=== PATIENT | female | born 1965 | race Caucasian/White ===

== ENCOUNTER 2024-11-08 10:27 | Emergency (ER) | payer OTHER, SELFPAY ==
--- NOTE | 2024-11-08 10:37 | ED_ITS ---
HPI - General Adult General Chief complaint: Headache Stated complaint: Headache Time Seen by Provider: 11/08/24 10:37 Source: patient Mode of arrival: ambulatory Limitations: no limitations History of Present Illness HPI narrative: 59 yo F with hx of migraines presents with c/o headache for 4 days. Out of toradol which she normally takes for her migraines. States normal migraine symptoms, pain, nausea and fatigue. No vomiting or vision changes. Alert and talkative. Moved here 5 months ago and does not have PCP. Also out of levothyroxine and losartan. BP elevated today. No CP or SOB. All systems reviewed and negative except as noted above. Related Data Home Medications ?Medication ?Instructions ?Recorded ?Confirmed ?Last Taken ?Type Benadryl 11/08/24 11/07/24 History Haldol 11/08/24 Unknown History Prozac 11/08/24 Unknown History levothyroxine 11/08/24 Unknown History propanolol 11/08/24 Unknown History toradol 11/08/24 11/07/24 History Allergies Allergy/AdvReac Type Severity Reaction Status Date / Time divalproex sodium (From Allergy Intermediate Rash Verified 11/08/24 10:38 Depakote) Sulfa (Sulfonamide Allergy Intermediate Rash Verified 11/08/24 10:38 Antibiotics) Review of Systems Review of Systems: CONSTITUTIONAL: Denies fever, chills, or sweats. EYES: Denies visual changes, redness, or discharge. ENT: Denies rhinorrhea, congestion, sore throat, or otalgia. CARDIOVASCULAR: Denies chest pain, palpitations, or edema. RESPIRATORY: Denies cough or dyspnea. GASTROINTESTINAL: Denies abdominal pain, nausea, vomiting, or diarrhea. GENITOURINARY: Denies dysuria or hematuria. SKIN: Denies rash or itching. MUSCULOSKELETAL: Denies back pain, joint pain, or myalgia. NEUROLOGIC: Reports headache, nausea, fatigue. Denies numbness, or weakness. PSYCHIATRIC: Denies anxiety or depression. All other systems reviewed are negative, except as documented in HPI. PMFSH Comments At time of signature, agree with nursing past medical, surgical, social and family history. There is no relevant family history pertinent to the presenting complaint. Exam Narrative: GENERAL: This is a well-nourished, well-developed patient, in no apparent distress. HEAD: normocephalic, atraumatic. EYES: PERRL. Sclera clear/white. Vision is grossly intact. extraocular motions intact EARS: External ears normal, auditory canals clear and without drainage, TMs normal without perforation. Hearing grossly intact. NOSE: External nose normal with no obvious nasal discharge, nares without redness, no rhinorrhea. THROAT: Mucous membranes moist, posterior pharynx clear. NECK: Neck supple, non-tender without lymphadenopathy, masses or thyromegaly. CARDIOVASCULAR: Regular rate and rhythm without murmurs, gallops, or rubs. RESPIRATORY: Clear to auscultation. Breath sounds equal bilaterally. No wheezes, rales, or rhonchi. SKIN: warm, Dry, intact with no suspicious lesions or rash, good texture and turgor. NEURO: awake, alert, and oriented to person, place and time. There were no obvious focal neurologic abnormalities. EXTREMITIES: No joint tenderness, effusion, or edema noted. Course Course Level of Care: Express Care Visit Vital Signs Vital signs: Vital Signs Pulse Rate 74 11/08/24 10:47 Respiratory Rate 11/08/24 10:47 Blood Pressure 184/74 H 11/08/24 10:47 Pulse Oximetry 11/08/24 10:47 Pulse Rate 74 11/08/24 10:47 Respiratory Rate 11/08/24 10:47 Blood Pressure 162/69 H 11/08/24 11:17 Pulse Oximetry 11/08/24 10:47 review Medical Decision Making MDM Narrative Medical decision making narrative: migraine pain decreased from 7/10 to 4/10. Blood pressure at discharge 162/80. Refilled losartan. No chest pain or shortness of breath. Refer to primary care physician for follow-up. No neuro deficits. Vital Signs Vital Signs: Vital Signs Pulse Rate 74 11/08/24 10:47 Respiratory Rate 11/08/24 10:47 Blood Pressure 184/74 H 11/08/24 10:47 Pulse Oximetry 11/08/24 10:47 Pulse Rate 74 11/08/24 10:47 Respiratory Rate 11/08/24 10:47 Blood Pressure 162/69 H 11/08/24 11:17 Pulse Oximetry 11/08/24 10:47 Discharge Plan Discharge Clinical Impression: Migraine, Encounter for medication refill Patient Disposition: Home Condition: Stable Instructions: Migraine Headache (ED) Additional Instructions: Your blood pressure was 162/80. I refilled your losartan today. Go home and rest in a dark, quiet room. Drink at least 64 ounces of water a day. Schedule follow up appointment. Patient Language: Indonesian Prescriptions: New losartan 25 mg tablet 25 mg PO DAILY 30 Days Qty: 30 0RF No Action toradol Benadryl propanolol levothyroxine Haldol Prozac Follow-up/Referrals: Roque Montenegro MD [Physician] - ( establish care with a primary care physician) PHYSICIAN,COLLEGE OR UNIVERSITY REGISTRAR [Primary Care Provider] - Time of Disposition: 11:18
--- OUTSIDE RECORDS SUMMARY | 2024-11-08 10:42 | XMS_ITS ---
Author Organization Formerly [facility] Address [address] [place] [address] Care Team Providers Care Records Management Director Name Role Phone Levi García Primary Care Provider Shanita Brar Unavailable [phone] Allergies Allergen (clinical drug ingredient) Drug/Non Drug Allergy documented on EMR Reaction Allergy Type Onset Date Status valproate Depakote Unknown Drug Allergy Active Substance with sulfonamide structure and antibacterial mechanism of action (substance) Sulfa Antibiotics Unknown Drug Allergy Active REASON FOR VISIT 4 week F/U Medications Medication SIG (Take, Route, Frequency, Duration) Notes Start Date End Date Status Albuterol Sulfate HFA 108 (90 Base) MCG/ACT 1 puff as needed Inhalation every 4 hrs Active Levothyroxine Sodium 175 MCG 1 tablet in the morning on an empty stomach Orally Once a day Active Propranolol HCl ER 80 MG 1 capsule Orall y Once a day; Duration: 30 days Active Mirtazapine 7.5 MG 1-2 tablets at bedti ri as needed for sleep Orally; Duration: 30 days Active ALPRAZolam 0.5 MG 1 tablet once daily as needed for SEVERE Orally Active Simvastatin 40 MG 1 tablet in the even ing Orally Once a day Active Haloperidol 1 MG 1 tablet at bedtime Orally Once a day; Duration: 30 days take with 5 mg tablet Active Haloperidol 5 MG 1 tablet at bedtime Orally Once a day; Duration: 30 days take with 1 mg tablet Active FLUoxetine HCl 60 MG 1 tablet Orally Onc e a day; Duration: 30 days Active Social History Sex Assigned At : Social History Observation Description Sex Assigned At Female Encounters Encounter Location Date Provider Diagnosis [facility] [address], [place] [address] 11/07/2024 Shanita Brar MADELYN (generalized anxiety disorder) F41.1 ; Bipolar disorder F31.9 ; MDD (major depressive disorder) F32.9 ; PTSD (post-traumatic stress disorder) F43.10 ; Panic disorder F41.0 and Insomnia G47.00 Assessments Encounter Date Diagnosis (ICD Code) Assessment Notes Treatment Notes Treatment Clinical Notes Section Notes 11/07/2024 MADELYN (generalized anxiety disorder) (ICD-10 - F41.1) 11/07/2024 Bipolar disorder (ICD-10 - F31.9) 11/07/2024 MDD (major depressive disorder) (ICD-10 - F32.9) 11/07/2024 PTSD (post-traumatic stress disorder) (ICD-10 - F43.10) 11/07/2024 Panic disorder (ICD-10 - F41.0) 11/07/2024 Insomnia (ICD-10 - G47.00) Encouraged patient to f/u with Dr. García about sleep study to diagnose possible sleep apnea Plan Of Treatment Medication Medication Name Sig Start Date Stop Date Notes Propranolol HCl ER 80 MG 1 capsule Orall y Once a day; Duration: 30 days Mirtazapine 7.5 MG 1-2 tablets at bedti me as needed for sleep Orally; Duration: 30 days ALPRAZolam 0.5 MG 1 tablet once daily as needed for SEVERE Orally Haloperidol 1 MG 1 tablet at bedtime Orally Once a day; Duration: 30 days Haloperidol 5 MG 1 tablet at bedtime Orally Once a day; Duration: 30 days FLUoxetine HCl 60 MG 1 tablet Orally Onc e a day; Duration: 30 days Treatment Notes Assessment Notes Insomnia Encouraged patient t o f/u with Dr. García about sleep study to diagnose possible sleep apnea Next Appt Details Provider Name:Shanitarosa m huitronsammie, 11/14/2024 01:40:00 PM, [address] [place], [address], Progress Notes * Danny FELTONDOB: [birth year] (59 yo F)Acc No.[id number]:11/07/2024 UNLOCKED PROGRESS NOTE Patient: Montez Danny ZAVALETA Provider: Laci Brar, MSN, ECONOMIC DEVELOPMENT COORDINATOR, PMHNP-BC :1965 A ge:59 Y S ex:Female Date:11/07/2024 Address:[address] [place], [place] [id number] Pcp:Levi García Subjective: * Chief Complaints: * 1 . 4 week F/U. * HPI: D epression Screening: PHQ-9 L ittle interest or pleasure in doing things S everal days, F eeling down, depressed, or hopeless S everal days, T rouble falling or staying asleep, or sleeping too much N early every day, F eeling tired or having little energy Several days, P oor appetite or overeating S everal days, F eeling bad about yourself or that you are a failure, or have let yourself or your family down N ot at all, T rouble concentrating on things, such as reading the newspaper or watching television N ot at all, M oving or speaking so slowly that other people could have noticed; or the opposite, being so fidgety or restless that you have been moving around a lot more than usual N ot at all, T houghts that you would be better off or of hurting yourself in some way N ot at all, T otal Score 7 , I nterpretation M ild Depression. I ntervention D epression Screening Findings N egative, F ollow-Up for Depression P rescribed psychotropic medications, S uicide Risk Assessment Performed 0 10/10/2024. C SSRS Interpretation and Follow Up Plan: CSSRS Interpretation and Follow Up Plan C SSRS Screen documented using SF Y es, R isk Disposition from M oderate - Follow Up Plan required, F ollow Up Plan M oderate/High: Patient risk further assessed by Behavioral Health ECONOMIC DEVELOPMENT COORDINATOR or Clinician, no warm hand off needed at this time, T imeframe of Screening T cynthia. S creening: Thor Suicide Severity Rating Scale (LF) D o you want to initiate with S creener form, I nterpretation: M oderate Risk, 6 . Suicide Behavior Question: Have you ever done anything,started to do anything, or prepared to end your life? Y es, W ere any of these in the past 3 months? N o, 2 . Suicidal Thoughts: Have you actually had any thoughts of killing yourself? N o, 1 . Wish to be : Have you wished you were or wished you could go to sleep and not wake up? N o. S ummary: . * ROS: P sych ROS: Constitutional A ll systems negative unless indicated otherwise.. E ndocrine H istory of Hypothyroidism - treated. P sych P ast suicide attempt/attempts -1,Reports anger/irritability,Reports depression/anxiety,Reports sleep disturbances. * Medical History: P TSD, Bipolar, Hypothyroidism. * Surgical History: L eft Elbow Bone Reduction 2019, Carpal Tunnel Both Hands , HYSTERECTOMY/REVISE VAGINA 09/2005. * Hospitalization/Major Diagno stic Procedure: D enies Past Hospitalization. * Family History: F ather: . M other: . 3 brother(s) , 3 sister(s) . 1 son(s) , 2 daughter(s) . . sister: autism. * Social History: P [facility] Social History: L iving Arrangement L iving Arrangement: D ependent Living, L iving with: S ister, I s this a supportive environment? Y es. A lcohol Use A lcohol Use Frequency: Never. I llicit Substance Usage I llicit Substance Usage: N o. S lisbeth Question Alcohol Screening H ow may times in the past year have you had (4 for women, or 5 for men) or more drinks in a day? 0 . * Medications: T aking Simvastatin 40 MG Tablet 1 tablet in the evening Orally Once a day , Taking Albuterol Sulfate HFA 108 (90 Base) MCG/ACT Aerosol Solution 1 puff as needed Inhalation every 4 hrs , Taking Levothyroxine Sodium 175 MCG Capsule 1 tablet in the morning on an empty stomach Orally Once a day , Taking Haloperidol 5 MG Tablet 1 tablet at bedtime Orally Once a day take with 1 mg tablet, Taking Haloperidol 1 MG Tablet 1 tablet at bedtime Orally Once a day take with 5 mg tablet, Taking FLUoxetine HCl 60 MG Tablet 1 tablet Orally Once a day , Taking Propranolol HCl ER 80 MG Capsule Extended Release 24 Hour 1 capsule Orally Once a day , Taking ALPRAZolam 0.5 MG Tablet 1 tablet once daily as needed for SEVERE Orally , Taking Mirtazapine 7.5 MG Tablet 1-2 tablets at bedtime as needed for sleep Orally * Allergies: S ulfa Antibiotics, Depakote: Side Effects. Objective: * Vitals: * Examination: M ental Status Exam: SENSORIUM AND COGNITION A &Ox4. ATTENTION AND CONCENTRATION N o deficits. APPEARANCE P ifeoma interview - unable to determine appearance.. ATTITUDE AND BEHAVIOR C ooperative, Pleasant. EYE CONTACT P ifeoma interview. AFFECT C ongruent with reported mood. MOOD E uthymic. SPEECH QUANTITY A ppropriate. SPEECH QUALITY F luent, Appropriate volume. THOUGHT PROCESS C oherent and goal directed. THOUGHT CONTENT A ppropriate - WNL. LANGUAGE A ppropriate- WNL. MOTOR ACTIVITY P ifeoma interview. SUICIDAL IDEATION H istory of suicide attempt, Denies suicidal ideation. HOMICIDAL IDEATION D enies homicidal ideation. HALLUCINATIONS D enies hallucinations. INSIGHT G ood. JUDGMENT G ood. FUND OF KNOWLEDGE G ood. ABILITY TO PARTICIPATE IN TREATMENT H igh. WILLINGNESS TO PARTICIPATE IN TREATMENT H igh. SIGNIFICANT FINDINGS REGARDING MENTAL STATUS N one. DEPRESSIVE SYMPTOMS M oderate. ELEVATED MOOD SYMPTOMS R eported in the past, but not evident at current visit. ANXIETY M oderate. Assessment: * Assessment: 1. G AD (generalized anxiety disorder) - F41.1 2 . B ipolar disorder - F31.9 (Primary) 3 . M DD (major depressive disorder) - F32.9 4 .?PTSD (post-traumatic stress disorder) - F43.10 5 . P anic disorder - F41.0? 6. I nsomnia - G47.00 Plan: * Treatment: 2. G AD (generalized anxiety disorder) Refill Propranolol HCl ER Capsule Extended Release 24 Hour, 80 MG, 1 capsule, Orally, Once a day, 30 days, 30, Refills 0. 3. M DD (major depressive disorder) Increase FLUoxetine HCl Tablet, 60 MG, 1 tablet, Orally, Once a day, 30 days, 30 Tablet, Refills 0.? 4. P anic disorder Refill ALPRAZolam Tablet, 0.5 MG, 1 tablet once daily as needed for SEVERE, Orally, 12, Refills 0.? 5. I nsomnia Refill Mirtazapine Tablet, 7.5 MG, 1-2 tablets at bedtime as needed for sleep, Orally, 30 days, 60, Refills 0. Notes: Encouraged patient to f/u with Dr. García about sleep study to diagnose possible sleep apnea? * * Electronic signature of Brooks thalia Brar on 11/08/2024 at 10:42 AM CDT Sign off status: Pending * Provider: Laci Brar, MSN, ECONOMIC DEVELOPMENT COORDINATOR, PMHNP- Date: 0 11/07/2024 Generated for Printing/Faxing/eTransmitting on: 0 11/08/2024 10:42 AM CDT History and Physical Notes * HPI (History of Present Illness) Category Sub-Category Detail Notes Category Not es Depression Screening PHQ-9 Little inte rest or pleasure in doing things: Several days Feeling down, depressed, or hopeless: Se veral days Trouble falling or staying asleep, or sl eeping too much: Nearly every day Feeling tired or having little energy: S everal days Poor appetite or overeating: Several day s Feeling bad about yourself o r that you are a failure, or have let yourself or your family down: Not at all Trouble concentrating on thi ngs, such as reading the newspaper or watching television: Not at all Moving or speaking so slowly that other people could have noticed; or the opposite, being so fidgety or restless that you have been moving around a lot more than usual: Not at all Thoughts that you would be b leticia off or of hurting yourself in some way: Not at all Total Score: 7 Interpretation: Mild Depression Intervention Depression Screening Findings: N egative Follow-Up for Depression: Prescribed psy chotropic medications Suicide Risk Assessment Performed: 10/10 Summary . Screening Thor Suicide Sev erity Rating Scale (LF) Do you want to initiate with: Screener form Interpretation:: Moderate Risk 6. Suicide Behavior Question: Have you ever done anything,started to do anything, or prepared to end your life?: Yes Were any of these in the past 3 months?: No 2. Suicidal Thoughts: Have you actually had any thoughts of killing yourself?: No 1. Wish to be : Have you wished you were or wished you could go to sleep and not wake up?: No CSSRS Interpretation and Follow Up Plan CSSRS Interpretation and Follow Up Plan CSSRS Screen documented using SF: Yes Risk Disposition from SF: Moderate - Fol low Up Plan required Follow Up Plan: Moderate/Hig h: Patient risk further assessed by Behavioral Health ECONOMIC DEVELOPMENT COORDINATOR or Clinician, no warm hand off needed at this time Timeframe of Screening: Today Examination Category Sub-Category Detail Notes Category Not es Mental Status Exam SENSORIUM AND COGNITION A&Ox4 ATTENTION AND CONCENTRATION No deficits APPEARANCE Phone interview - un able to determine appearance. ATTITUDE AND BEHAVIOR Cooperative, Pleas ant EYE CONTACT Phone interview AFFECT Congruent with repor patti mood MOOD Euthymic SPEECH QUANTITY Appropriate SPEECH QUALITY Fluent, Appropriate volume THOUGHT PROCESS Coherent and goal di rected THOUGHT CONTENT Appropriate - WNL MOTOR ACTIVITY Phone interview SUICIDAL IDEATION History of suicide a ttempt, Denies suicidal ideation HOMICIDAL IDEATION Denies homicidal daniel ation HALLUCINATIONS Denies hallucination s INSIGHT Good JUDGMENT Good FUND OF KNOWLEDGE Good ABILITY TO PARTICIPATE IN TREATMENT High WILLINGNESS TO PARTICIPATE IN TREATMENT High SIGNIFICANT FINDINGS REGARDI NG MENTAL STATUS None LANGUAGE Appropriate- WNL DEPRESSIVE SYMPTOMS Moderate ELEVATED MOOD SYMPTOMS Reported in the p ast, but not evident at current visit ANXIETY Moderate
--- OUTSIDE RECORDS SUMMARY | 2024-11-08 10:42 | XMS_ITS | Patient Health Record ---
Author Organization [facility] Address [address] [place] [address] Care Team Providers Care Quantitative Associate Name Role Phone Levi García Primary Care Provider ValdezJohn bryan Unavailable [phone] Shanita Brar Unavailable [phone] Allergies Allergen (clinical drug ingredient) Drug/Non Drug Allergy documented on EMR Reaction Allergy Type Onset Date Status valproate Depakote Unknown Drug Allergy Active Substance with sulfonamide structure and antibacterial mechanism of action (substance) Sulfa Antibiotics Unknown Drug Allergy Active Reason For Referral No Information Medications Medication SIG (Take, Route, Frequency, Duration) Notes Start Date End Date Status Albuterol Sulfate HFA 108 (90 Base) MCG/ACT 1 puff as needed Inhalation every 4 hrs Active Simvastatin 40 MG 1 tablet in the even ing Orally Once a day Active Levothyroxine Sodium 175 MCG 1 tablet in the morning on an empty stomach Orally Once a day Active Haloperidol 1 MG 1 tablet at bedtime Orally Once a day; Duration: 30 days take with 5 mg tablet Active Haloperidol 5 MG 1 tablet at bedtime Orally Once a day; Duration: 30 days take with 1 mg tablet Active Propranolol HCl ER 80 MG 1 capsule Orall y Once a day; Duration: 30 days Active FLUoxetine HCl 60 MG 1 tablet Orally Onc e a day; Duration: 30 days Active Mirtazapine 7.5 MG 1-2 tablets at bedti me as needed for sleep Orally; Duration: 30 days Active ALPRAZolam 0.5 MG 1 tablet once daily as needed for SEVERE Orally Active Social History Tobacco Use: Social History Observation Description Date Details (start date - stop date) Current Smoker NA - NA Sex Assigned At : Social History Observation Description Sex Assigned At Female PRAPARE Question Answer Notes Date Completed/Updated: 09/13/2024 What is your current housing situation? I have h ousing Are you worried about losing your housing? No What is the highest level of school that you have finished? Less than a high school degree What is your current work situation? Oth erwise unemployed but not seeking work (ex. student, retired, disabled, unpaid primary rn coronary care unit) In the past year, have you o r any family members you live with been unable to get any of the following when it was really needed? Check all that apply I do not have problems meeting my needs Has lack of transportation k ept you from medical appointments, meetings, work or from getting things needed for daily living? No How often do you see or talk to people that you care about and feel close to? (For example: talking to friends on the phone, visiting friends or family, going to mormon or club meetings) More than 5 times a week How stressed are you? Stress is when someone feels tense, nervous, anxious, or can\t sleep at night because their mind is troubled Somewhat In the past year have you sp ent more than 2 nights in a row in a skilled nursing, snf, long-term center, or juvenile correctional facility? No Do you feel physically and e motionally safe where you currently live? Yes In the past year, have you b een afraid of your partner or ex-partner? Yes PRAPARE Score: 6 Tobacco Control (Standard) Question Answer Notes Tobacco use: Current every day smoker Additional Findings: Tobacco user Heavy cigarett e smoker (20-39 cigs/day) Problems Problem Type SNOMED Code ICD Code Onset Dates Problem Status W/U Status Risk Notes Problem Insomnia (490315512) Insomnia (G47.00) Active confirmed Problem Posttraumatic stress disorder (99944745) PTSD (post-traumatic stress disorder) (F43.10) Active confirmed Problem Generalized anxiety disorder (58943910) MADELYN (generalized anxiety disorder) (F41.1) Active confirmed Problem Panic disorder (213548938) Panic disorder (F41.0) Active confirmed Problem Bipolar disorder (26386730) Bipolar disorder (F31.9) Active confirmed Problem Major depressive disorder (602076795) MDD (major depressive disorder) (F32.9) Active confirmed Problem Nicotine dependence (76885955) Nicotine dependence (F17.200) Active confirmed Problem Bulimia nervosa, unspecified (F50.20) Active confirmed Vital Signs Heart Rate 88 /min 09/15/2024 Temperature 98.2 degrees Fahrenheit 07/21/2024 Respiratory Rate 16 /min 07/21/2024 Oximetry 98 % 09/15/2024 Blood pressure diastolic 90 mm Hg 09/15/2024 Height 64 in 09/15/2024 Blood pressure systolic 134 mm Hg 09/15/2024 Weight 223.2 lbs 09/15/2024 BMI 38.31 kg/m2 09/15/2024 Encounters Encounter Location Date Provider Diagnosis [address] [address] 07/21/2024 John Valdez Bipolar disorder F31.9 ; MADELYN (generalized anxiety disorder) F41.1 ; MDD (major depressive disorder) F32.9 ; PTSD (post-traumatic stress disorder) F43.10 and Bulimia nervosa, unspecified F50.[address] [address] 08/18/2024 John Valdez Bipolar disorder F31.9 ; MADELYN (generalized anxiety disorder) F41.1 ; MDD (major depressive disorder) F32.9 ; PTSD (post-traumatic stress disorder) F43.10 ; Bulimia nervosa, unspecified F50.20 and Nicotine dependence F17.[address] [address] 09/15/2024 John Valdez Bipolar disorder F31.9 ; MADELYN (generalized anxiety disorder) F41.1 ; MDD (major depressive disorder) F32.9 ; PTSD (post-traumatic stress disorder) F43.10 ; Bulimia nervosa, unspecified F50.20 and Nicotine dependence F17.[address] [address] 10/10/2024 Shanita Zonia Bipolar disorder F31.9 ; MADELYN (generalized anxiety disorder) F41.1 ; MDD (major depressive disorder) F32.9 ; PTSD (post-traumatic stress disorder) F43.10 ; Panic disorder F41.0 ; Insomnia G47.00 and Therapeutic drug monitoring Z51.81 [facility] [place] [address] 09/14/2024 Levi García Assessments Encounter Date Diagnosis (ICD Code) Assessment Notes Treatment Notes Treatment Clinical Notes Section Notes 07/21/2024 Bipolar disorder (ICD-10 - F31.9) Duration (acute/chronic), stability (controlled/uncontro lled): Chronic, somewhat controlled with current medications, still some room for improvement, see HPI Current medications/efficacy : Somewhat, room for improvement Previous medication trials: fluoxetine, venlafaxine, haloperidol, paroxetine (GI upset), escitalopram (ineffective), citalopram, bupropion, quetiapine (weight gain), melatonin (ineffective) Current/previous therapies: Previously followed up with therapy, last appointment last month, previously following up once monthly - planning to establish care with another therapist Examination as documented - see pertinent aspects of office visit documentation. Pertinent diagnostics: WAITING ON MEDICAID [place] TO KICK IN Differential diagnoses: RECOMMENDATIONS: START propranolol as prescribed to assist with anxiety/panic/PTSD - educated patient/guardian on adverse effects, risks and benefits, as well as alternative treatments START fluoxetine as prescribed to assist with anxiety/depression/b ulemia - educated patient/guardian on adverse effects, risks and benefits, as well as alternative treatments Continue/modify other medications as prescribed - educated patient/guardian on adverse effects, risks and benefits, as well as alternative treatments Consume well balanced diet, preferably low in saturated fats (solid at room temperature, such as butter, margarine, Crisco, etc) and low in sodium (<2,000mg per day). Consume plenty of fruits/vegetables, healthy grains/whole grains, unsaturated/healthy fats (liquid at room temperature, such as olive oil, sunflower seed oil, canola, vegetable, etc.). Exercise regularly - Develop an exercise routine. 30 minutes of moderate exercise (walking at a brisk pace) 5 times per week is recommended. You should work hard enough to cause a sweat but still be able to talk with others while exercising. Exercise improves overall health - improves blood pressure and blood sugar, helps control weight, reduces stress, and improves mood. Practice stress reduction techniques, such as guided imagery, journaling, aromatherapy, acupuncture/acupress ure, deep breathing, etc. Practice healthy sleep hygiene - maintain regular routine, no caffeine after 1PM, no exercise 1-2 hours prior to bedtime, keep bedroom dark and cool, no TV or electronics while in bed. Consider melatonin as needed. Consider cognitive behavioral therapy for insomnia (CBT-I). Consider/Continue therapy. Consider/Continue substance cessation therapy as needed - contact office if desiring medication assisted therapy. Manage co-morbid conditions. Continue monitoring symptoms - report persistent or worsening/concerning symptoms to the office or go to the ER. For mental health CRISIS, please reach out to [phone] ([place] [place] [employer] Suicide and Crisis Lifeline), 911, go to the emergency department, or contact the [facility] Crisis Unit/Team. Follow up as scheduled in 4 weeks or sooner if necessary. Follow up with PCP and/or other specialists as advised. NEXT STEP: Consider LAB collection after [place] Medicaid [place]. Consider increasing fluoxetine. Consider increasing propranolol. Consider medication to assist with sleep. 08/18/2024 Bipolar disorder (ICD-10 - F31.9) Duration (acute/chronic), stability (controlled/uncontro lled): Chronic, subjective slight improvement with recent medication adjustments, still some room for improvement, see HPI Current medications/efficacy : Somewhat, room for improvement Previous medication trials: fluoxetine, venlafaxine, haloperidol, paroxetine (GI upset), escitalopram (ineffective), citalopram, bupropion, quetiapine (weight gain), melatonin (ineffective), quetiapine (weight gain) Current/previous therapies: Previously followed up with therapy, last appointment last month, previously following up once monthly - planning to establish care with another therapist Examination as documented - see pertinent aspects of office visit documentation. Pertinent diagnostics: WAITING ON MEDICAID [place] TO KICK IN Differential diagnoses: RECOMMENDATIONS: INCREASE propranolol and switch to ER formulation as prescribed to assist with anxiety/panic/PTSD - educated patient/guardian on adverse effects, risks and benefits, as well as alternative treatments INCREASE fluoxetine as prescribed to assist with anxiety/depression/b ulemia - educated patient/guardian on adverse effects, risks and benefits, as well as alternative treatments START trazodone as prescribed to assist with sleep - educated patient/guardian on adverse effects, risks and benefits, as well as alternative treatments DECREASE venlafaxine as prescribed/discussed , patient wanting to optimize fluoxetine and potentially discontinue venlafaxine - educated patient/guardian on adverse effects, risks and benefits, as well as alternative treatments START low dose alprazolam as prescribed, ONLY NEEDED, patient to focus on nonpharmacologic stress reduction techniques as discussed FIRST - educated patient/guardian on adverse effects, risks and benefits, as well as alternative treatments Continue/modify other medications as prescribed - educated patient/guardian on adverse effects, risks and benefits, as well as alternative treatments Consume well balanced diet, preferably low in saturated fats (solid at room temperature, such as butter, margarine, Crisco, etc) and low in sodium (<2,000mg per day). Consume plenty of fruits/vegetables, healthy grains/whole grains, unsaturated/healthy fats (liquid at room temperature, such as olive oil, sunflower seed oil, canola, vegetable, etc.). Exercise regularly - Develop an exercise routine. 30 minutes of moderate exercise (walking at a brisk pace) 5 times per week is recommended. You should work hard enough to cause a sweat but still be able to talk with others while exercising. Exercise improves overall health - improves blood pressure and blood sugar, helps control weight, reduces stress, and improves mood. Practice stress reduction techniques, such as guided imagery, journaling, aromatherapy, acupuncture/acupress ure, deep breathing, etc. Practice healthy sleep hygiene - maintain regular routine, no caffeine after 1PM, no exercise 1-2 hours prior to bedtime, keep bedroom dark and cool, no TV or electronics while in bed. Consider melatonin as needed. Consider cognitive behavioral therapy for insomnia (CBT-I). Consider/Continue therapy. Consider/Continue substance cessation therapy as needed - contact office if desiring medication assisted therapy. Manage co-morbid conditions. Continue monitoring symptoms - report persistent or worsening/concerning symptoms to the office or go to the ER. For mental health CRISIS, please reach out to [phone] (National Suicide and Crisis Lifeline), 911, go to the emergency department, or contact the [facility] Crisis Unit/Team. Follow up as scheduled in 4 weeks or sooner if necessary. Follow up with PCP and/or other specialists as advised. NEXT STEP: Consider LAB collection after [place]. Consider increasing fluoxetine. Consider increasing propranolol. Consider other medication adjustments as needed. 09/15/2024 Bipolar disorder (ICD-10 - F31.9) Duration (acute/chronic), stability (controlled/uncontro lled): Chronic, subjective slight improvement with recent medication adjustments, still some room for improvement, see HPI Current medications/efficacy : Somewhat, room for improvement Previous medication trials: fluoxetine, venlafaxine, haloperidol, paroxetine (GI upset), escitalopram (ineffective), citalopram, bupropion, quetiapine (weight gain), melatonin (ineffective), hydroxyzine (ineffective), trazodone (oversedating) Current/previous therapies: Previously followed up with therapy, last appointment last month, previously following up once monthly - planning to establish care with another therapist Examination as documented - see pertinent aspects of office visit documentation. Pertinent diagnostics: WAITING ON MEDICAID [place] TO KICK IN Differential diagnoses: RECOMMENDATIONS: INCREASE propranolol and switch to ER formulation as prescribed to assist with anxiety/panic/PTSD - educated patient/guardian on adverse effects, risks and benefits, as well as alternative treatments INCREASE fluoxetine as prescribed to assist with anxiety/depression/b ulemia - educated patient/guardian on adverse effects, risks and benefits, as well as alternative treatments STOP trazodone and SWITCH to mirtazapine as prescribed to assist with sleep - educated patient/guardian on adverse effects, risks and benefits, as well as alternative treatments DECREASE venlafaxine as prescribed/discussed , patient wanting to optimize fluoxetine and potentially discontinue venlafaxine - educated patient/guardian on adverse effects, risks and benefits, as well as alternative treatments CONTINUE low dose alprazolam as prescribed, ONLY NEEDED, patient to focus on nonpharmacologic stress reduction techniques as discussed FIRST - educated patient/guardian on adverse effects, risks and benefits, as well as alternative treatments Continue/modify other medications as prescribed - educated patient/guardian on adverse effects, risks and benefits, as well as alternative treatments Consume well balanced diet, preferably low in saturated fats (solid at room temperature, such as butter, margarine, Crisco, etc) and low in sodium (<2,000mg per day). Consume plenty of fruits/vegetables, healthy grains/whole grains, unsaturated/healthy fats (liquid at room temperature, such as olive oil, sunflower seed oil, canola, vegetable, etc.). Exercise regularly - Develop an exercise routine. 30 minutes of moderate exercise (walking at a brisk pace) 5 times per week is recommended. You should work hard enough to cause a sweat but still be able to talk with others while exercising. Exercise improves overall health - improves blood pressure and blood sugar, helps control weight, reduces stress, and improves mood. Practice stress reduction techniques, such as guided imagery, journaling, aromatherapy, acupuncture/acupress ure, deep breathing, etc. Practice healthy sleep hygiene - maintain regular routine, no caffeine after 1PM, no exercise 1-2 hours prior to bedtime, keep bedroom dark and cool, no TV or electronics while in bed. Consider melatonin as needed. Consider cognitive behavioral therapy for insomnia (CBT-I). Consider/Continue therapy. Consider/Continue substance cessation therapy as needed - contact office if desiring medication assisted therapy. Manage co-morbid conditions. Continue monitoring symptoms - report persistent or worsening/concerning symptoms to the office or go to the ER. For mental health CRISIS, please reach out to [phone] ([employer] [place] [employer] Suicide and Crisis Lifeline), 911, go to the emergency department, or contact the [facility] Crisis Unit/Team. Follow up as scheduled in 4 weeks or sooner if necessary. Follow up with PCP and/or other specialists as advised. NEXT STEP: Consider LAB collection after [place]. Consider increasing fluoxetine. Consider increasing propranolol. Consider other medication adjustments as needed. 10/10/2024 MADELYN (generalized anxiety disorder) (ICD-10 - F41.1) 10/10/2024 Bipolar disorder (ICD-10 - F31.9) 10/10/2024 MDD (major depressive disorder) (ICD-10 - F32.9) 09/15/2024 MADELYN (generalized anxiety disorder) (ICD-10 - F41.1) See assessment and plan for bipolar disorder 08/18/2024 MADELYN (generalized anxiety disorder) (ICD-10 - F41.1) See assessment and plan for bipolar disorder 07/21/2024 MADELYN (generalized anxiety disorder) (ICD-10 - F41.1) See assessment and plan for bipolar disorder 07/21/2024 MDD (major depressive disorder) (ICD-10 - F32.9) See assessment and plan for bipolar disorder 08/18/2024 MDD (major depressive disorder) (ICD-10 - F32.9) See assessment and plan for bipolar disorder 10/10/2024 PTSD (post-traumatic stress disorder) (ICD-10 - F43.10) 09/15/2024 MDD (major depressive disorder) (ICD-10 - F32.9) See assessment and plan for bipolar disorder 10/10/2024 Panic disorder (ICD-10 - F41.0) 09/15/2024 PTSD (post-traumatic stress disorder) (ICD-10 - F43.10) See assessment and plan for bipolar disorder 08/18/2024 PTSD (post-traumatic stress disorder) (ICD-10 - F43.10) See assessment and plan for bipolar disorder 07/21/2024 PTSD (post-traumatic stress disorder) (ICD-10 - F43.10) See assessment and plan for bipolar disorder 07/21/2024 Bulimia nervosa, unspecified (ICD-10 - F50.20) Duration (acute/chronic), stability (controlled/uncontro lled): Chronic, somewhat controlled with current medications, still some room for improvement, see HPI Current medications/efficacy : Somewhat, room for improvement Previous medication trials: fluoxetine, venlafaxine, haloperidol, paroxetine (GI upset), escitalopram (ineffective), citalopram, bupropion, quetiapine (weight gain), melatonin (ineffective) Current/previous therapies: Previously followed up with therapy, last appointment last month, previously following up once monthly - planning to establish care with another therapist Examination as documented - see pertinent aspects of office visit documentation. Pertinent diagnostics: WAITING ON MEDICAID [place] TO KICK IN Differential diagnoses: RECOMMENDATIONS: START fluoxetine as prescribed to assist with anxiety/depression/b ulemia - educated patient/guardian on adverse effects, risks and benefits, as well as alternative treatments Continue/modify other medications as prescribed - educated patient/guardian on adverse effects, risks and benefits, as well as alternative treatments Consume well balanced diet, preferably low in saturated fats (solid at room temperature, such as butter, margarine, Crisco, etc) and low in sodium (<2,000mg per day). Consume plenty of fruits/vegetables, healthy grains/whole grains, unsaturated/healthy fats (liquid at room temperature, such as olive oil, sunflower seed oil, canola, vegetable, etc.). Exercise regularly - Develop an exercise routine. 30 minutes of moderate exercise (walking at a brisk pace) 5 times per week is recommended. You should work hard enough to cause a sweat but still be able to talk with others while exercising. Exercise improves overall health - improves blood pressure and blood sugar, helps control weight, reduces stress, and improves mood. Practice stress reduction techniques, such as guided imagery, journaling, aromatherapy, acupuncture/acupress ure, deep breathing, etc. Practice healthy sleep hygiene - maintain regular routine, no caffeine after 1PM, no exercise 1-2 hours prior to bedtime, keep bedroom dark and cool, no TV or electronics while in bed. Consider melatonin as needed. Consider cognitive behavioral therapy for insomnia (CBT-I). Consider/Continue therapy. Consider/Continue substance cessation therapy as needed - contact office if desiring medication assisted therapy. Manage co-morbid conditions. Continue monitoring symptoms - report persistent or worsening/concerning symptoms to the office or go to the ER. For mental health CRISIS, please reach out to [phone] ([employer] [place] [employer] Suicide and Crisis Lifeline), 911, go to the emergency department, or contact the [facility] Crisis Unit/Team. Follow up as scheduled in 4 weeks or sooner if necessary. Follow up with PCP and/or other specialists as advised. NEXT STEP: Consider LAB collection after [place] Medicaid is active. Consider increasing fluoxetine. Consider other medications as needed. 08/18/2024 Bulimia nervosa, unspecified (ICD-10 - F50.20) See assessment and plan for bipolar disorder 09/15/2024 Bulimia nervosa, unspecified (ICD-10 - F50.20) See assessment and plan for bipolar disorder 10/10/2024 Insomnia (ICD-10 - G47.00) Encouraged patient to f/u with Dr. García about sleep study to diagnose possible sleep apnea 09/15/2024 Nicotine dependence (ICD-10 - F17.200) Duration (acute/chronic), stability (controlled/uncontro lled): Smokes cigarettes, smoking been smoking since 16, smoking about 0.5 packs daily, sometimes more if anxious Current medications/efficacy : N/A Previous medication trials: N/A RECOMMENDATIONS: Consider/Continue therapy. Consider/Continue substance cessation therapy as needed - contact office if desiring medication assisted therapy. Manage co-morbid conditions. Continue monitoring symptoms - report persistent or worsening/concerning symptoms to the office or go to the ER. For mental health CRISIS, please reach out to [phone] ([place] [employer] Suicide and Crisis Lifeline), 911, go to the emergency department, or contact the [facility] Crisis Unit/Team. Follow up as scheduled or sooner if necessary. Follow up with PCP and/or other specialists as advised. NEXT STEP: Consider MAT as needed. 08/18/2024 Nicotine dependence (ICD-10 - F17.200) Duration (acute/chronic), stability (controlled/uncontro lled): Smokes cigarettes, smoking been smoking since 16, smoking about 0.5 packs daily, sometimes more if anxious Current medications/efficacy : N/A Previous medication trials: N/A RECOMMENDATIONS: Consider/Continue therapy. Consider/Continue substance cessation therapy as needed - contact office if desiring medication assisted therapy. Manage co-morbid conditions. Continue monitoring symptoms - report persistent or worsening/concerning symptoms to the office or go to the ER. For mental health CRISIS, please reach out to [phone] ([place] [employer] Suicide and Crisis Lifeline), 911, go to the emergency department, or contact the [facility] Crisis Unit/Team. Follow up as scheduled or sooner if necessary. Follow up with PCP and/or other specialists as advised. NEXT STEP: Consider MAT as needed. 10/10/2024 Therapeutic drug monitoring (ICD-10 - Z51.81) 10/10/2024 Other May self-administer medications or be administered own oral medications per [place] protocols. Provided informed consent with understanding of side effects, adverse effects, risks and benefits as well as alternative treatments as previously discussed and with the above recommended medications & other aspects of the treatment program. Agrees to return sooner if symptoms worsen or suicidal or homicidal ideations occur. Medication Hx: -Depakote (pt reports it made her feel like she was crawling out of her skin -Trazodone (oversedating) -Venlafaxine -paroxetine (GI upset) -escitalopram (ineffective) -citalopram -bupropion -quetiapine (weight gain) -melatonin (ineffective) -hydroxyzine (ineffective) Plan: -Stop Venlafaxine 75 mg once daily -Continue Haloperidol 5 mg QHS (TDD 6 mg) -Continue Haloperidol 1 mg QHS (TDD 6 mg) -Increase Fluoxetine to 60 mg once daily -Continue Propranolol ER 80 mg once daily -Continue Mirtazapine 7.5 mg 1-2 tablets QHS PRN for sleep -Continue Alprazolam 0.5 mg once daily PRN for severe anxiety *ordered labs & UDS *pt needs to be seen in person by 09/2025 -Follow up: 4 weeks [] Hard Rx handed to patient [] Rx phoned into pharmacy [x] Rx faxed/e-prescribed into pharmacy [x] PDMP Reviewed [] [facility] Reviewed Encouraged by [facility]- to: [] consider utilizing therapist/counselor/ social service technician/psychologist, referral given [x] continue with therapist/counselor/ social service technician/psychologist Psychoeducation: -Treatment options discussed in detail with patient/guardian verbalizing understanding of treatment rationales. -Side effects and benefits of all medications prescribed discussed at length between psychiatric prescribing provider and patient/guardian along with the risks associated of [id number] interactions, including but not limited to prescription medications, OTC medications, vitamins, minerals and herbal supplements. -Patient/Guardian and provider dialogue showcased verbalized understanding from patient on rationales of medication risk vs benefits. -Information with neurobiology of presenting neurotransmitter disorder, mood stability, sleep hygiene and 7-8 hours of uninterrupted sleep per night with wakeful and refreshed awakening and day long alertness discussed. -Reduction of stress and anxiety to aid in focus and concentration discussed, again, with patient/guardian physically nodding, voicing understanding, and engaged in treatment plan with [facility]-. -Perceiving complete understanding of rationale by patient/guardian and willingness to adhere to formulated plan of care by prescriber with patient/guardian buy-in, willingness to participate actively in plan of care and willing to take charge of own care. -Although geared for female patients, all patients/guardians are informed by prescribing provider of risks of medications that could potentially be taken by female/women within their [place] of influence and that women who use medicine during have a higher chance of having a baby with defects. -Patient/Guardian denies being and/or knowing of women who are at present and denies wanting to become in the foreseeable future, 0-6 months from now. -Patient/Guardian again informed of the risk of pharmaceutical medications consumed during and how there are potential negative effects on the developing fetus. -Patient/Guardian verbalizes understanding of rationale and physically nods head in agreement that if a should occur, to consult with provider, JOURNEYMAN CARPENTER and/or Nurse Ditching Machine Engineer to determine if prescribed medications should or should not be continued. -Instructions regarding both the medical/pharmacologi keerthi and non-pharmacologic aspects of the treatments employed were given, and the patient/guardian seemed to understand this. Risks and benefits of treatment, and of non-treatment, were also discussed. The patient/guardian understands the more frequent side effects associated with the medications. -The use of psychotherapy was addressed today and will continue on an as needed basis for the foreseeable future. The choice is, of course, ultimately left to the patient/guardian. -Patient/Guardian was encouraged to make a follow-up appointment for the next visit. -Additional treatment was discussed and has been addressed on an ongoing basis within the context of this patient's illness, resources, progress, and other appropriate factors. Being compliant with a regular exercise routine, consistent medication use, ongoing psychotherapy, eating and sleeping well, as well as the importance of handling stress, was discussed. Plan Of Treatment Pending Test Test Name Order Date Hemoglobin A1c* 10/10/2024 CBC With Differential/Platelet* 10/11/19 25 TSH+Free T4* 10/10/2024 Lipid Panel* 10/10/2024 CMP 14 Comprehensive Metabolic Panel* 12 Panel Urine Drug Screen 10/10/2024 Next Appt Details Provider Name:Shanita carpenter, 11/14/2024 01:40:00 PM, [address], [id number], Insurance Providers Payer Name Payer Address Payer Phone Subscriber Number Group Number Insured Name Patient Relationship to Insured Coverage Start Date Coverage End Date [employer] [address] [place] [phone] [id number] Danny Bragg Self - patient is the insured 5 [employer] [address] [place] [address] [id number] Danny Bragg Self - patient is the insured 5 Medical (General) History Medical History History ICD Code PTSD bipolar hypothyroidism Surgical History Surgery Date(Month/Year) Left Elbow Bone Reduction 2020 Carpal Tunnel Both Hands HYSTERECTOMY/REVISE VAGINA 09/2005
[2024-11-08 10:47] VITALS: BP 184/74; PULSE 74; RESP 20; O2SAT 100
[2024-11-08] MEDS: diphenhydrAMINE HCl CAP 25 MG CAPSULE 50 MG PO (10:56)
[2024-11-08] MEDS: KETOROLAC (*BKC) 60 MG/2 ML VIAL IM (10:57)
[2024-11-08] MEDS: ONDANSETRON HCL ODT 4 MG TABLET SUBLINGUAL (10:57)
[2024-11-08 11:17] VITALS: BP 162/69
== END 2024-11-08 11:30 | disposition home or self-care (01) ==
PROVIDERS: Emergency Provider Nurse Practitioner Family
DX: G43.909 Migraine, unspecified, not intractable, without status migrainosus (principal); Z76.0 Encounter for issue of repeat prescription; I10 Essential (primary) hypertension; E78.00 Pure hypercholesterolemia, unspecified; K21.9 Gastro-esophageal reflux disease without esophagitis; E03.9 Hypothyroidism, unspecified
CPT/HCPCS: 96372; 99203; A9270; G0463; J1885